=== PATIENT | female | born 1980 | race Caucasian/White ===

== ENCOUNTER → 2023-12-21 08:39 | Outpatient (BNVA) | payer OTHER, SELFPAY | PROVIDERS: Visit Provider Nurse Practitioner Family | DX: L20.89 Other atopic dermatitis (principal); Z13.220 Encounter for screening for lipoid disorders; Z13.0 Encounter for screening for diseases of the blood and blood-forming organs and certain disorders involving the immune mechanism; Z13.228 Encounter for screening for other metabolic disorders | CPT/HCPCS: 80053; 80061; 82785; 84443; 85025; 85651; 86003; 86038; 86140; 86200; 86431 ==